=== PATIENT | male | born 1950 | race Two or more races ===

== ENCOUNTER 2017-03-17 13:52 | Emergency (ER) | payer SELFPAY ==
--- NOTE | 2017-03-17 15:03 | ER Document Report ---
ED Medical Screen (RME) - General Chief Complaint: Pelvic Pain Stated Complaint: PELVIC PAIN Mode of Arrival: Ambulatory Information source: Patient Notes: KAMALA outreach coordinator used TRAVEL OUTSIDE OF THE [place] IN LAST 30 DAYS: No - HPI Associated Symptoms: Abdominal pain, Dysuria Notes: 03/17/17 15:02 Patient arrives with complaints of lower abdominal pain and dysuria. Thinks that it might be his prostate. He has a history of prostatitis in the past. He denies fever, nausea, vomiting, diarrhea. He has mild lower abdominal tenderness on exam. - Related Data Allergies/Adverse Reactions: pramiverine Allergy (Uncoded 03/17/17 14:15) Past Medical History Renal/ Medical History: Denies: Hx Peritoneal Dialysis Physical Exam - Vital signs Vitals: Temp Pulse Resp BP Pulse Ox 99.1 F 78 18 130/63 H 96 03/17/17 14:15 03/17/17 14:15 03/17/17 14:15 03/17/17 14:15 03/17/17 14:15 Course - Vital Signs Vital signs: Temp Pulse Resp BP Pulse Ox 99.1 F 78 18 130/63 H 96 03/17/17 14:15 03/17/17 14:15 03/17/17 14:15 03/17/17 14:15 03/17/17 14:15
[2017-03-17 16:25] LABS: ABSOLUTE EOSINOPHILS # (AUTO) 0.1 10^3/uL (0.0-0.6); ABSOLUTE LYMPHOCYTES (AUTO) 1.3 10^3/uL (0.5-4.7); ABSOLUTE MONOCYTES (AUTO) 0.6 10^3/uL (0.1-1.4); ABSOLUTE NEUT (AUTO) 6.4 10^3/uL (1.7-8.2); BASOPHILS % (AUTO) 0.3 % (0-2); EOSINOPHILS % (AUTO) 0.7 % (0-6); HEMATOCRIT 47.1 % (37.9-51.0); HEMOGLOBIN 16.1 g/dL (13.5-17.0); HGB HCT DIFFERENCE 1.2; LYMPHOCYTES % (AUTO) 15.8 % (13-45); MEAN CORPUSCULAR HEMOGLOBIN 29.5 pg (27.0-33.4); MEAN CORPUSCULAR HGB CONC 34.1 g/dL (32.0-36.0); MEAN CORPUSCULAR VOLUME 87 fl (80-97); MONOCYTES % (AUTO) 7.3 % (3-13); RED BLOOD COUNT 5.44 10^6/uL (4.35-5.55); RED CELL DISTRIBUTION WIDTH 13.4 % (11.5-14.0); SEGMENTED NEUTROPHILS % (AUTO) 75.9 % (42-78); WHITE BLOOD COUNT 8.5 10^3/uL (4.0-10.5)
[2017-03-17 16:34] LABS: APPEARANCE,URINE CLEAR; BILIRUBIN,URINE NEGATIVE (NEGATIVE); GLUCOSE, URINE 50 mg/dL (NEGATIVE); KETONES,URINE NEGATIVE (NEGATIVE); LEUKOCYTE ESTERASE,URINE NEGATIVE (NEGATIVE); NITRITE,URINE NEGATIVE (NEGATIVE); PROTEIN,URINE NEGATIVE (NEGATIVE); URINE SPECIFIC GRAVITY 1.013; UROBILINOGEN,URINE NEGATIVE mg/dL (<2.0)
[2017-03-17 16:46] LABS: ALANINE AMINOTRANSFERASE 36 U/L (21-72); ALBUMIN 4.8 g/dL (3.5-5.0); ALKALINE PHOSPHATASE 62 U/L (38-126); ANION GAP 13 (5-19); ASPARTATE AMINO TRANSFERASE 19 U/L (17-59); BILIRUBIN,DIRECT 0.3 mg/dL (0.0-0.4); BILIRUBIN,TOTAL 0.5 mg/dL (0.2-1.3); BLOOD UREA NITROGEN 20 mg/dL (7-20); CALCIUM 10.6 mg/dL (8.4-10.2); CARBON DIOXIDE 28 mmol/L (22-30); CHLORIDE 100 mmol/L (98-107); CREATININE RESULT 0.87 mg/dL (0.52-1.25); GLUCOSE 157 mg/dL (75-110); LIPASE 129.2 U/L (23-300); POTASSIUM 4.4 mmol/L (3.6-5.0); SODIUM 140.8 mmol/L (137-145); TOTAL PROTEIN 7.8 g/dL (6.3-8.2)
--- NOTE | 2017-03-17 20:34 | RADIOLOGY REPORT (SQ) ---
EXAM DESCRIPTION: CT ABD/PELVIS NO ORAL OR IV COMPLETED DATE/TIME: 03/17/2017 7:43 pm REASON FOR STUDY: GROIN PAIN COMPARISON: None. TECHNIQUE: CT scan of the abdomen and pelvis performed without intravenous or oral contrast. Images reviewed with lung, soft tissue, and bone windows. Reconstructed coronal and sagittal MPR images revi ewed. All images stored on PACS. All CT scanners at this facility use dose modulation, iterative reconstruction, and/or weight based d osing when appropriate to reduce radiation dose to as low as reasonably achievable (ALARA). [facility]: Dose Right [facility]: CareDose [facility]: Dose Right [facility]: Teradose 4D [facility]: Smart Redeem RADIATION DOSE: Up-to-date CT equipment and radiation dose reduction techniques were employed. CTDIv ol: 6.3 mGy. DLP: 372 mGy-cm.mGy. LIMITATIONS: None. FINDINGS: LOWER CHEST: No significant findings. No nodules or infiltrates. NON-CONTRASTED LIVER, SPLEEN, ADRENALS: Evaluation limited by lack of IV contrast. No identified sign ificant masses. PANCREAS: No masses. No peripancreatic inflammatory changes. GALLBLADDER: No identified stones by CT criteria. No inflammatory changes to suggest cholecystitis. RIGHT KIDNEY AND URETER: Small parenchymal cysts. Assessment limited by lack of IV contrast. No sig nificant calcifications. No hydronephrosis or hydroureter. LEFT KIDNEY AND URETER: Small parenchymal cysts. Assessment limited by lack of IV contrast. No sign ificant calcifications. No hydronephrosis or hydroureter. AORTA AND RETROPERITONEUM: No aneurysm. No retroperitoneal masses or adenopathy. BOWEL AND PERITONEAL CAVITY: No obvious masses or inflammatory changes. No free fluid. APPENDIX: Normal. PELVIS, BLADDER, AND ABDOMINAL WALL:Enlarged prostate, particularly the median lobe with 3.5 cm of pr ostate compression of the bladder base. No free fluid. Bladder otherwise appears normal. BONES: No significant findings. OTHER: No other significant finding. IMPRESSION: No acute findings. Enlarged prostate, particularly the median lobe with 3.5 cm of prost ate compression of the bladder base. COMMENT: Quality ID # [id number]: Final reports with documentation of one or more dose reduction techniques (e.g., Automated exposure control, adjustment of the mA and/or kV according to patient size, use of iterative reconstruction technique) TECHNICAL DOCUMENTATION: JOB ID: [id number]- All Rights Reserved
[2017-03-17] MEDS ORDERED: TAMSULOSIN HCL 0.4 MG CAP.SR.24H PO ONE (21:41)
[2017-03-17] MEDS ORDERED: CIPROFLOXACIN HCL 500 MG TABLET PO ONE (21:42)
--- NOTE | 2017-03-17 21:48 | ER Document Report ---
ED General - General Chief Complaint: Pelvic Pain Stated Complaint: PELVIC PAIN Time Seen by Provider: 03/17/17 20:49 Mode of Arrival: Ambulatory Information source: Patient, Relative TRAVEL OUTSIDE OF THE [place] IN LAST 30 DAYS: No - HPI Notes: Patient is a 66-year-old male history of prostatic nodules and previous BPH and previous urinary retention presents emergency department with report of lower pain below the testicles and lower pelvis. Patient denies any fever or flank pain. He reports no significant retention sensation currently. The patient has a appointment with a urologist in 2 days in [place]. No constipation or diarrhea. - Related Data Allergies/Adverse Reactions: pramiverine Allergy (Uncoded 03/17/17 14:15) Past Medical History - General Information source: Patient, Relative - Social History Smoking Status: Never Smoker Chew tobacco use (# tins/day): No Frequency of alcohol use: None Drug Abuse: None Lives with: Family Family History: Reviewed & Not Pertinent Endocrine Medical History: Reports: Hx Diabetes Mellitus Type 2 Renal/ Medical History: Reports: Hx Kidney Stones. Denies: Hx Peritoneal Dialysis Surgical Hx: Negative Review of Systems - Review of Systems Notes: REVIEW OF SYSTEMS: CONSTITUTIONAL : Denies fever, chills, or sweats. Denies recent illness. EENT: Denies eye, ear, throat, or mouth pain or symptoms. Denies nasal or sinus congestion or discharge. Denies throat, tongue, or mouth swelling or difficulty swallowing. CARDIOVASCULAR: Denies chest pain. Denies palpitations or racing or irregular heart beat. Denies ankle edema. RESPIRATORY: Denies cough, cold, or chest congestion. Denies shortness of breath, difficulty breathing, or wheezing. GASTROINTESTINAL: Denies abdominal distention. Denies nausea, vomiting, or diarrhea. Denies blood in vomitus, stools, or per rectum. Denies black, tarry stools. Denies constipation. GENITOURINARY: Denies painful urination, burning, frequency, blood in urine, or discharge. The patient does report poor urine stream. MUSCULOSKELETAL: Denies back or neck pain or stiffness. Denies joint pain or swelling. SKIN: Denies rash, lesions or sores. HEMATOLOGIC : Denies easy bruising or bleeding. LYMPHATIC: Denies swollen, enlarged glands. NEUROLOGICAL: Denies confusion or altered mental status. Denies passing out or loss of consciousness. Denies dizziness or lightheadedness. Denies headache. Denies weakness or paralysis or loss of use of either side. Denies problems with gait or speech. Denies sensory loss, numbness, or tingling. Denies seizures. PSYCHIATRIC: Denies anxiety or stress. Denies depression, suicidal ideation, or homicidal ideation. ALL OTHER SYSTEMS REVIEWED AND NEGATIVE. Dictation was performed using [employer] voice recognition software Physical Exam - Vital signs Vitals: Temp Pulse Resp BP Pulse Ox 99.1 F 78 18 130/63 H 96 03/17/17 14:15 03/17/17 14:15 03/17/17 14:15 03/17/17 14:15 03/17/17 14:15 - Notes Notes: PHYSICAL EXAMINATION: GENERAL: Well-appearing, well-nourished and in no acute distress. HEAD: Atraumatic, normocephalic. EYES: Pupils equal round and reactive to light, extraocular movements intact, sclera anicteric, conjunctiva are normal. ENT: Nares patent, oropharynx clear without exudates. Moist mucous membranes. NECK: Normal range of motion, supple without lymphadenopathy LUNGS: Breath sounds clear to auscultation bilaterally and equal. No wheezes rales or rhonchi. HEART: Regular rate and rhythm without murmurs ABDOMEN: Soft, nontender, nondistended abdomen. No guarding, no rebound. No masses appreciated. Musculoskeletal: Normal range of motion, no pitting or edema. No cyanosis. NEUROLOGICAL: Cranial nerves grossly intact. Normal speech, normal gait. Normal sensory, motor exams PSYCH: Normal mood, normal affect. SKIN: Warm, Dry, normal turgor, no rashes or lesions noted. / Rectal: Prostate enlarged left slightly greater than right slightly tender. Some irregularity noted through the prostate. No testicular pain or mass or erythema through the region externally. Course - Re-evaluation Re-evalutation: 03/17/17 21:48 Patient was given Cipro by mouth and was given Flomax, which he takes daily but did not take today. CT scan showed no obvious urinary retention and the patient was able to urinate on his own. CT scan likewise showed no obvious prostatic cancer, although this cannot be excluded and the patient has had previous prostate ultrasound which showed nodular lesions. No evidence for UTI or electrolyte imbalance or renal insufficiency or anemia. Patient was given a copy of his labs and other studies and will follow up with urology in 2 days in [place]. - Vital Signs Vital signs: Temp Pulse Resp BP Pulse Ox 99.1 F 78 18 130/63 H 96 03/17/17 14:15 03/17/17 14:15 03/17/17 14:15 03/17/17 14:15 03/17/17 14:15 - Laboratory Result Diagrams: 03/17/17 16:07 03/17/17 16:07 Laboratory results interpreted by me: 03/17/17 03/17/17 16:07 16:07 Glucose 157 H Calcium 10.6 H Urine Glucose (UA) 50 H Urine Blood MODERATE H Discharge - Discharge Clinical Impression: Prostatitis Qualifiers: Prostatitis type: acute Qualified Code(s): N41.0 - Acute prostatitis Condition: Stable Disposition: HOME, SELF-CARE Instructions: Prostatic Hypertrophy ([facility]), Prostatitis ([facility]) Additional Instructions: Follow-up with urology in [place] in 2 days as instructed. Return to the ED in case of fever or severe pain or inability to urinate. Take your Flomax every day regularly. Prescriptions: Ciprofloxacin HCl [Cipro 250 mg Tablet] 1 tab PO BID #20 tab Referrals: MARBELLA SANTIAGO MD [Primary Care Provider] - Follow up as needed
[2017-03-17 22:44] VITALS: BP 130/74
== END 2017-03-17 22:15 | disposition home or self-care (01) ==
LOC: ER 13:52
DX: N41.0 Acute prostatitis (principal); R10.2 Pelvic and perineal pain; E11.9 Type 2 diabetes mellitus without complications; Z87.898 Personal history of other specified conditions; Z88.8 Allergy status to other drugs, medicaments and biological substances
CPT/HCPCS: 36415; 74176; 80053; 81001; 83690; 85025; 99284